=== PATIENT | male | born 1975 | race Caucasian/White ===

== ENCOUNTER 2016-11-21 15:41 | Emergency (ER) | payer OTHER ==
[~2016-11-21] VITALS: Ht 175.3 cm; Wt 139.5 kg
[2016-11-21 15:53] VITALS: Ht 175.3 cm; Wt 139.5 kg
[2016-11-21] MEDS ORDERED: KETOROLAC 60 MG INJ IM STA (16:36)
[2016-11-21] MEDS ORDERED: DIAZEPAM 5 MG TAB PO ONE (17:00)
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
--- NOTE | 2016-11-21 17:13 | RADRPT ---
PROCEDURE: XR Chest. CLINICAL INDICATION: Dyspnea TECHNIQUE: Single frontal chest x-ray. COMPARISON: None. FINDINGS: The lungs are clear. No focal opacification is seen. The cardiomediastinal silhouette is unremarka ble. The osseous structures are unremarkable. IMPRESSION: No radiographic acute cardiopulmonary abnormalities. RPTAT: BB .Jorge Turner MD, MD Date Time Electronically viewed and signed by .Jorge Turner MD, on 11/21/2016 17:13 .O/
--- NOTE | 2016-11-21 17:53 | RADRPT ---
PROCEDURE: US DVT. CLINICAL INDICATION: Lower extremity swelling. Evaluate for deep venous thrombosis.. TECHNIQUE: Multiple longitudinal and transverse images of the bilateral lower extremity veins were obtained with lott scale and color Doppler imaging. 2D grayscale measurements with compression, co semaj Doppler flow, and augmentation was performed. The calf veins were interrogated as well. COMPARISON: No prior studies are available for comparison. FINDINGS: The bilateral common femoral, superficial femoral and popliteal veins are normally compressible thro ughout. Color flow demonstrates normal filling of the vessel. Normal waveforms are visualized and there is normal response to augmentation. The calf veins are visualized and are equally unremarkabl e. IMPRESSION: 1. No evidence of a deep vein thrombosis involving either lower extremity. RPTAT: [facility] Physician Kathe Date Time Electronically viewed and signed by Physician Kathe on 11/21/2016 17:53 /
[2016-11-21] MEDS ORDERED: NAPR-260 PO (18:00)
[2016-11-21] MEDS ORDERED: CYCL-319 PO (18:00)
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
== END 2016-11-21 18:11 | disposition home or self-care (01) ==
LOC: FTE 15:41
DX: S39.92XA Unspecified injury of lower back, initial encounter (principal); R60.0 Localized edema; V59.40XA Driver of pick-up truck or van injured in collision with unspecified motor vehicles in traffic accident, initial encounter
CPT/HCPCS: 71010; 72100; 93965; J1885; Z7610; 96372